=== PATIENT | female | born 1995 | race Caucasian/White ===

== ENCOUNTER → 2020-01-05 15:49 | Outpatient (CLI) | payer BC, SELFPAY ==
[2020-01-05 13:44] VITALS: BMI 42.1
[2020-01-09 17:06] LABS: HPV Reflexed? NOT INDICATED
== END ==
PROVIDERS: Referring Provider Obstetrics & Gynecology; Visit Provider Obstetrics & Gynecology
DX: Z12.4 Encounter for screening for malignant neoplasm of cervix (principal)
CPT/HCPCS: 88175; G0145

== ENCOUNTER → 2020-02-19 14:22 | Outpatient (CLI) | payer BC, SELFPAY ==
[2020-02-19 13:54] VITALS: BMI 41.7
[2020-02-19 15:22] LABS: Absolute Lymphocyte Count 2.13 X10^3/uL (0.83-4.51); Absolute Neutrophil Count 8.3 X10^3/uL (2.0-7.7); Basophil# 0.01 X10^3/uL; Basophil% 0.1 % (0-1); Eosinophil# 0.04 X10^3/uL; Eosinophils% 0.4 % (0-5); Hematocrit 37.5 % (37-47); Hemoglobin 12.5 g/dL (12.0-15.0); Lymphocyte # 2.13 X10^3/ul (4.0); Lymphocyte % 19.6 % (19-41); Mean Corp Hgb Conc 33.3 g/dL (32-36); Mean Corpuscular Hgb 31.1 pg (27.0-32.0); Mean Corpuscular Volume 93.3 fL (81-99); Mean Platelet Vol. 10.4 fl (6.2-12.0); Monocyte# 0.34 X10^3/uL; Monocyte% 3.1 % (0-10); NRBC Flagged by Analyzer 0 % (0-5); Neutrophil # 8.32 X10^3/uL (2.7-7.7); Neutrophil % 76.4 % (47-70); Platelet Count 275 K/mm3 (150-450); RBC Distribution Width CV 11.9 % (11.6-14.6); RBC Distribution Width SD 40.5 fl (35.1-43.9); Red Blood Count 4.02 M/mm3 (4.2-5.4); White Blood Count 10.9 K/mm3 (4.4-11.0)
[2020-02-19 16:13] LABS: Glucose Challenge Gest 1H 50g 145 mg/dL (70-140)
[2020-02-19 17:07] LABS: HIV - WCH Non-Reactive (Nonreactive); Hepatitis B Surface Antigen Non-Reactive (Nonreactive); Hepatitis C Antibody Non-Reactive (Nonreactive)
[2020-02-19 18:26] LABS: Amphetamine Urine VISTA NEGATIVE (<1000 ng/mL); Barbiturate Urine VISTA NEGATIVE (< 200 ng/mL); Benzodiazepine Urine VISTA NEGATIVE (< 200 ng/mL); Cocaine Urine VISTA NEGATIVE (< 300 ng/mL); Ecstacy Urine VISTA NEGATIVE (< 500 ng/mL); Methadone Urine VISTA NEGATIVE (< 300 ng/mL); PCP Urine VISTA NEGATIVE (< 25 ng/mL); THC Urine VISTA NEGATIVE (< 50 ng/mL); Vista UDS pH Range 5
[2020-02-24 03:07] LABS: Chlamydia By Nucleic Acid AMP Negative (Negative)
[2020-02-24 06:29] LABS: Gonococcus By Nucleic Acid AMP Negative (Negative)
[2020-02-26 01:20] LABS: Rapid Plasmin Reagin (RPR) NONREACTIVE (NONREACTIVE)
== END ==
PROVIDERS: Referring Provider Obstetrics & Gynecology; Visit Provider Obstetrics & Gynecology
DX: Z34.90 Encounter for supervision of normal pregnancy, unspecified, unspecified trimester (principal); Z12.4 Encounter for screening for malignant neoplasm of cervix
CPT/HCPCS: 36415; 80307; 82950; 85025; 86592; 86703; 86803; 86850; 86900; 86901; 87086; 87088; 87340; 87491; 87591

== ENCOUNTER → 2020-02-25 07:01 | Outpatient (CLI) | payer BC, SELFPAY ==
[2020-02-19 13:54] VITALS: BMI 41.7
[2020-02-25 08:17] LABS: Glucose GTT-Gestation. Fasting 86 mg/dL (<105)
[2020-02-25 09:45] LABS: Glucose GTT-Gestational 1 Hr 150 mg/dL (<190)
[2020-02-25 09:45] LABS: Glucose GTT-Gestational 2 Hr 108 mg/dL (<165)
[2020-02-25 11:44] LABS: Glucose GTT-Gestational 3 Hr 52 L (<145)
== END ==
PROVIDERS: PCP Nurse Practitioner Family; Referring Provider Obstetrics & Gynecology; Visit Provider Obstetrics & Gynecology
DX: O99.210 Obesity complicating pregnancy, unspecified trimester (principal); Z3A.00 Weeks of gestation of pregnancy not specified
CPT/HCPCS: 36415; 82951; 82952

== ENCOUNTER → 2020-04-13 08:15 | Outpatient (CLI) | payer BC, SELFPAY ==
[2020-03-18 14:15] VITALS: BMI 41.1
[2020-04-05 08:42] VITALS: BMI 41.5
--- NOTE | 2020-04-13 08:17 | CT_ITS ---
STUDY: CT BRAIN WITHOUT CONTRAST REASON FOR EXAM: Female, 24 years old. VISUAL DISTURANCE OF LEFT EYE, LEFT FACIAL PARATHESIA RADIATION DOSAGE (If Supplied By Facility): CTDIvol = ( 44.99 ) mGy, DLP = ( 829.85 ) mGycm TECHNIQUE: Transaxial CT imaging of the brain was performed without administration of intravenous contrast material. Individualized dose optimization techniques were used for this CT. COMPARISON: No relevant priors. FINDINGS: Normal soft tissue structures. Normal calvarium. Normal size ventricles and extra-axial spaces for the patient''s age. Normal white matter tracts of the cerebral hemispheres. Normal basal ganglia and thalami. Normal brainstem. Normal cerebellum. There is no intracranial hemorrhage. There are no findings of an acute ischemic infarction. Normal visualized paranasal sinuses. CT/Brain/Head without Contrast IMPRESSION: Normal unenhanced CT scan of the brain. Electronically Signed: Dutch Escobar MD at 8:47 EST Tel , Service support ,
== END ==
PROVIDERS: PCP Nurse Practitioner Family; Referring Provider Nurse Practitioner Family; Visit Provider Nurse Practitioner Family
DX: O26.899 Other specified pregnancy related conditions, unspecified trimester (principal); H53.9 Unspecified visual disturbance; R20.2 Paresthesia of skin; R20.0 Anesthesia of skin; R51.9 Headache, unspecified; Z3A.00 Weeks of gestation of pregnancy not specified
CPT/HCPCS: 70450

== ENCOUNTER → 2020-05-19 07:51 | Outpatient (CLI) | payer BC, SELFPAY ==
[2020-03-18 14:15] VITALS: BMI 41.1
[2020-05-06 13:52] VITALS: BMI 41.8
--- NOTE | 2020-05-19 07:53 | US_ITS ---
STUDY: SECOND AND THIRD TRIMESTER OBSTETRICAL ULTRASOUND REASON FOR EXAM: Female, 25 years old ANATOMY LMP: 01/01/2020. TECHNIQUE: Transabdominal TECHNICAL QUALITY: Adequate. PRIOR ULTRASOUND: None. FINDINGS: There is a single intrauterine fetus. The fetus is in a breech presentation. There is demonstrated cardiac activity with a heart rate of 147 bpm. There is a normal amniotic fluid volume. The largest amniotic fluid pocket measures 3.5 cm x 6.9 cm. The amniotic fluid index (HARSHA) is within normal limits. The placenta is posterior in location and is not low lying. There are Grade 1 placental changes. The cervix measures 4.7 cm in length. The adnexal regions are not visualized. BIOMETRY: BPD: 4.87 cm: 20 weeks, 5 days HC: 19.4 cm: 21 weeks, 4 days AC: 17.5 cm: 22 weeks, 2 days FL: 3.59 cm: 21 weeks, 2 days CI: 72.1% FL/BPD: 73.8% FL/HC: FL/AC: 20.6% HC/AC: 1.11 age by current US: 21 weeks, 2 days. HANY by current US: 09/27/2020. Estimated weight: 454 grams, +/- 68 grams, 41.7% %. Age by LMP: 21 weeks, 6 days. HANY by LMP: 09/23/2020. ANATOMY: Gender: Female Cranium: Normal lateral ventricles. Normal choroid plexus. Normal cerebellum. Normal cisterna magna. Normal face, nose and lips. Chest: Normal 4-chamber heart. Abdomen/Pelvis: Normal diaphragm. Normal stomach. Normal abdominal wall. Normal cord insertion. Normal 3 vessel cord. Normal kidneys. Normal bladder. Spine: Normal cervical spine. Normal thoracic spine. Normal lumbar spine. Normal sacrum. Extremities: Normal bilateral upper extremities. Normal bilateral lower extremities. US/OB Anatomy Scan IMPRESSION: Single live intrauterine gestation with a mean gestational age of 21 weeks and 2 days. Electronically Signed: Jin Miranda MD at 10:50 EST , Service support ,
== END ==
PROVIDERS: PCP Nurse Practitioner Family; Referring Provider Obstetrics & Gynecology; Visit Provider Obstetrics & Gynecology
DX: O09.90 Supervision of high risk pregnancy, unspecified, unspecified trimester (principal); Z3A.21 21 weeks gestation of pregnancy
CPT/HCPCS: 76805

== ENCOUNTER → 2020-06-21 06:52 | Outpatient (CLI) | payer BC, SELFPAY ==
[2020-05-31 14:22] VITALS: BMI 41.8
[2020-06-21 07:07] LABS: Absolute Lymphocyte Count 2.07 X10^3/uL (0.83-4.51); Absolute Neutrophil Count 8.4 X10^3/uL (2.0-7.7); Basophil# 0.03 X10^3/uL; Basophil% 0.3 % (0-1); Eosinophil# 0.06 X10^3/uL; Eosinophils% 0.5 % (0-5); Hematocrit 38.7 % (37-47); Hemoglobin 12.6 g/dL (12.0-15.0); Lymphocyte # 2.07 X10^3/ul (4.0); Lymphocyte % 18.3 % (19-41); Mean Corp Hgb Conc 32.6 g/dL (32-36); Mean Corpuscular Hgb 31.1 pg (27.0-32.0); Mean Corpuscular Volume 95.6 fL (81-99); Mean Platelet Vol. 9.7 fl (6.2-12.0); Monocyte# 0.75 X10^3/uL; Monocyte% 6.6 % (0-10); NRBC Flagged by Analyzer 0 % (0-5); Neutrophil # 8.36 X10^3/uL (2.7-7.7); Neutrophil % 73.9 % (47-70); Platelet Count 279 K/mm3 (150-450); RBC Distribution Width CV 13.2 % (11.6-14.6); RBC Distribution Width SD 46.4 fl (35.1-43.9); Red Blood Count 4.05 M/mm3 (4.2-5.4); White Blood Count 11.3 K/mm3 (4.4-11.0)
[2020-06-21 07:22] LABS: Glucose GTT-Gestation. Fasting 86 mg/dL (<105)
[2020-06-21 08:19] LABS: Rubella IgG Reactive (Nonreactive)
[2020-06-21 08:34] LABS: Glucose GTT-Gestational 1 Hr 173 mg/dL (<190)
[2020-06-21 09:39] LABS: Glucose GTT-Gestational 2 Hr 121 mg/dL (<165)
[2020-06-21 10:49] LABS: Glucose GTT-Gestational 3 Hr 51 L (<145)
== END ==
PROVIDERS: Obstetrics & Gynecology; PCP Nurse Practitioner Family; Referring Provider Obstetrics & Gynecology; Visit Provider Obstetrics & Gynecology
DX: O09.90 Supervision of high risk pregnancy, unspecified, unspecified trimester (principal); Z3A.00 Weeks of gestation of pregnancy not specified; O99.810 Abnormal glucose complicating pregnancy
CPT/HCPCS: 36415; 82951; 82952; 85025; 86762

== ENCOUNTER → 2020-08-30 16:38 | Outpatient (CLI) | payer BC, SELFPAY ==
[2020-08-30 09:43] VITALS: BMI 38.0
== END ==
PROVIDERS: Referring Provider Obstetrics & Gynecology; Visit Provider Obstetrics & Gynecology
DX: O09.93 Supervision of high risk pregnancy, unspecified, third trimester (principal); Z3A.00 Weeks of gestation of pregnancy not specified
CPT/HCPCS: 87081

== ENCOUNTER → 2020-09-20 14:07 | Outpatient (CLI) | payer BC, SELFPAY ==
[2020-09-06 12:56] VITALS: BMI 38.0
[2020-09-20 10:16] VITALS: BMI 39.4
== END ==
PROVIDERS: PCP Nurse Practitioner Family; Visit Provider Obstetrics & Gynecology
DX: O09.90 Supervision of high risk pregnancy, unspecified, unspecified trimester (principal); Z3A.00 Weeks of gestation of pregnancy not specified
CPT/HCPCS: 87635; C9803; U0005; U0003

== ENCOUNTER 2020-09-27 02:28 | Outpatient (CLI) | payer BC, SELFPAY ==
[2020-09-20 10:16] VITALS: BMI 39.4
[2020-09-27 02:40] VITALS: TEMP 36.2
[2020-09-27 02:43] VITALS: BP 132/82; PULSE 83; O2SAT 97
[2020-09-27 02:51] VITALS: BMI 39.6
[2020-09-27 06:37] VITALS: O2SAT 98
[2020-09-27 06:38] VITALS: BP 118/69; PULSE 80
[2020-09-27 07:13] VITALS: BP 120/75; PULSE 80; TEMP 36.8; O2SAT 98
[2020-09-27 07:14] VITALS: TEMP 36.8
--- NOTE | 2020-09-27 08:30 | OB.TRI.PN_ITS ---
Progress Notes Date of Service: 09/27/20 Progress Note: Patient presents for triage evaluation secondary to false labor FHT: 130 Moderate variability reactive no decelerations category I tracing [place]: q 5-6 Contractions Assessment and plan: no cervical change, false labor Reactive NST, reassuring maternal and status patient discharged to home to follow-up for IOL 41 weeks. See problem list details for additional plan information.
== END 2020-09-27 07:50 | disposition home or self-care (01) ==
LOC: WPOUT 02:39 → WP 02:40
PROVIDERS: PCP Nurse Practitioner Family; Referring Provider Obstetrics & Gynecology; Visit Provider Obstetrics & Gynecology
DX: O47.1 False labor at or after 37 completed weeks of gestation (principal); Z3A.00 Weeks of gestation of pregnancy not specified
CPT/HCPCS: 59025; 59050; 99218; G0378

== ENCOUNTER 2020-09-30 06:53 | Inpatient (IN) | payer BC, SELFPAY ==
[2020-09-30] VITALS (33 sets, daily range): BP systolic 96–156; BP diastolic 60–113; PULSE 79–112; TEMP 36.3–36.7; O2SAT 96–98; BMI 39.4
--- NOTE | 2020-09-30 07:22 | HP.PCM.OB_ITS ---
HPI - General General Date of Admission: 09/30/20 HPI Narrative SANCHEZ ANN, is a 25 F who presents at 41 weeks for IOL. she denies any vb lof admits good fm and irregular ctx Maternal Data Information HANY Calculator Estimated Delivery Date Method Current WG Current Estimate 09/23/20 LMP (Certain) 41w 0d Other Estimates 09/24/20 Ultrasound #1 40w 6d PFSH PFSH Medical History (Updated 09/30/20 @ 07:[address] Emelina aRngel MD) Seasonal allergies Home Medications multivitamin no.47-iron fum 27 mg-folate no.1 1 mg-dha 300 mg capsule cap PO 02/11/20 [History Last Taken Unknown] Allergy/AdvReac Type Severity Reaction Status Date / Time No Known Allergies Allergy Verified 09/27/20 02:52 Family History Grandfather Bladder cancer Grandmother Congestive heart failure Surgical History S/P tonsillectomy Social History Smoking Status: Never smoker alcohol intake: current details: occasionally substance use type: does not use caffeine: Yes what type of physical activity do you participate in: walking and weight training frequency: 1-2 times per week seatbelt use: always do you feel safe at home: Yes additional social history: [employer] Patient works at [employer] History 1 Elective abortions Hx Para Spontaneous abortions Hx # Term Pregnancies Ectopic pregnancies Hx # Pregnancies Multiple births # of living children Visit Details Expected Delivery Route/Plan Labor Preferences- CB/BF classes: planning online labor support person: Serg labor intervention preferences: IA, desires hydrotherapy, delayed cord clamping until stops pulsating, declines hep B vaccine, plan on vitamin K pain management options preferred: desires natural labor cut cord/dad catch: cord only : yes PP control planned: NFP discussed possible routes of delivery and associated risks: discussed possible delivery modalities and possible indications for each including R/B/A of , VAVD, and CS. questions answered. special requests: dad to announce Plans flu vaccine: declined tdap vaccine: given rhogam: na LARC form signed: declined movement and labor precautions reviewed. Problem list reviewed and updated with the most current plan of care details and appropriate orders placed. Relevant counseling for the gestational age provided. Continue routine care and follow up unless otherwise noted in visit notes/problem list details OB Flowsheet Initial Weight: 221 lb Date -?-?-?-?-?-?-?-?-?-?-?-?- EGA Weight BP Urine Prot -?-?-?-?-?-?-?-?-?-?-?-?- Glucose FHR FuHt Pres Dilation -?-?-?-?-?-?-?-?-?-?-?-?- Effaced St Visit Note 02/19/20 -?-?-?-?-?-?-?-?-?-?-?-?- 9w 0d 221 lb (+0 oz) 120/84 -?-?-?-?-?-?-?-?-?-?-?-?- 175 -?-?-?-?-?-?-?-?-?-?-?-?- SM- CRL cons wit h LMP SM- CRL2 cm cons with LMP 03/18/20 -?-?-?-?-?-?-?-?-?-?-?-?- 13w 0d 217 lb 6 oz (-3 lb 10 oz) 130/86 Negative -?-?-?-?-?-?-?-?-?-?-?-?- Negative 160 -?-?-?-?-?-?-?-?-?-?-?-?- GP - no cramping or bleeding. Anatomy scan ordered. 04/05/20 -?-?-?-?-?-?-?-?-?-?-?-?- 15w 4d 220 lb (-16 oz) 130/80 Negative -?-?-?-?-?-?-?-?-?-?-?-?- Negative 155 -?-?-?-?-?-?-?-?-?-?-?-?- SM- had complex migraine symptoms, seen by pcp and getting CT of the head. 05/06/20 -?-?-?-?-?-?-?-?-?-?-?-?- 20w 0d 221 lb 4 oz (+4 oz) 118/78 Negative -?-?-?-?-?-?-?-?-?-?-?-?- Negative 150 -?-?-?-?-?-?-?-?-?-?-?-?- GP - no ctx, LOF , VB, DFM. Anatomy scan first week in May. 05/31/20 -?-?-?-?-?-?-?-?-?-?-?-?- 23w 4d 221 lb 6 oz (+6 oz) 118/82 Negative -?-?-?-?-?-?-?-?-?-?-?-?- Negative 145 23 -?-?-?-?-?-?-?-?-?-?-?-?- GP - no LOF, VB, DFM, ctx. Plan repeat 3h GCT for glucose test. 06/28/20 -?-?-?-?-?-?-?-?-?-?-?-?- 27w 4d 223 lb (+2 lb) 132/80 Negative -?-?-?-?-?-?-?-?-?-?-?-?- Negative 160 27 -?-?-?-?-?-?-?-?-?-?-?-?- GP - no LOF, VB, DFM, ctx. 3h GCT nl. Currently remodeling their bedroom and baby's room. 07/12/20 -?-?-?-?-?-?-?-?-?-?-?-?- 29w 4d 221 lb 8 oz (+8 oz) 120/72 Negative -?-?-?-?-?-?-?-?-?-?-?-?- 500 g/dL 135 29 -?-?-?-?-?-?-?-?-?-?-?-?- GP - no LOF, VB, DFM, ctx. Denies complaints. Doing online childbirth classes. 07/28/20 -?-?-?-?-?-?-?-?-?-?-?-?- 31w 6d 222 lb (+16 oz) 104/72 Negative -?-?-?-?-?-?-?-?-?-?-?-?- Negative 170 150 32 -?-?-?-?-?-?-?-?-?-?-?-?- GP - no LOF, VB, DFM, ctx. Still doing online CB classes. Baby initially tachycardic - NST done. 08/09/20 -?-?-?-?-?-?-?-?-?-?-?-?- 33w 4d 222 lb (+16 oz) 98/80 Negative -?-?-?-?-?-?-?-?-?-?-?-?- Negative 150 34 -?-?-?-?-?-?-?-?-?-?-?-?- SM- no vb lof go od fm no regular ctx 08/23/20 -?-?-?-?-?-?-?-?-?-?-?-?- 35w 4d 225 lb (+4 lb) 94/80 Negative -?-?-?-?-?-?-?-?-?-?-?-?- Negative 140 36 Cephalic -?-?-?-?-?-?-?-?-?-?-?-?- SM- no vb lof go od fm no regular ctx 08/30/20 -?-?-?-?-?-?-?-?-?-?-?-?- 36w 4d 227 lb 8 oz (+6 lb 8 oz) 128/88 Negative -?-?-?-?-?-?-?-?-?-?-?-?- Negative 144 36 Cephalic 1 -?-?-?-?-?-?-?-?-?-?-?-?- 50 -3 GP - no LO F, VB, DFM, ctx. Discussed labor preferences and routes of delvery. GBS today. 09/06/20 -?-?-?-?-?-?-?-?-?-?-?-?- 37w 4d 230 lb (+9 lb) 120/86 Negative -?-?-?-?-?-?-?-?-?--?-?-?- Negative 145 37 Cephalic 1 -?-?-?-?-?-?-?-?-?-?-?-?- SM- no vb lof go od fm no regular ctx 09/15/20 -?-?-?-?-?-?-?-?-?-?-?-?- 38w 6d 230 lb 2 oz (+9 lb 2 oz) 120/88 Negative -?-?-?-?-?-?-?-?-?-?-?-?- Negative 140 39 Cephalic 2 -?-?-?-?-?-?-?-?-?-?-?-?- 60 -2 GP - no LO F, VB, DFM, ctx. Membranes swept. 09/20/20 -?-?-?-?-?-?-?-?-?-?-?-?- 39w 4d 231 lb (+10 lb) 110/82 Negative -?-?-?-?-?-?-?--?-?-?-?-?- 250 g/dL 150 39 Cephalic 2 -?-?-?-?-?-?-?-?-?-?-?-?- 60 -2 GP - no LO F, VB, DFM, ctx. Had cramping after membrane sweeping. Discussed IOL at 41w if no labor. 09/27/20 -?-?-?-?-?-?-?-?-?-?-?-?- 40w 4d 231 lb 6.4 oz (+10 lb 6.4 oz) 132/82 118/69 120/75 -?-?-?-?-?-?-?-?-?-?-?-?- -?-?-?-?-?-?-?-?-?-?-?-?- 09/30/20 -?-?-?-?-?-?-?-?-?-?-?-?- 41w 0d -?-?-?-?-?-?-?-?-?-?-?-?- -?-?-?-?-?-?-?--?-?-?-?-?- NST FHR Rate Baby A Baseline: 130 Variability:: Moderate Accelerations:: 15 x 15 Decelerations:: None NST Reactive:: Yes FHR Category:: Category I Uterine Activity:: irregular ROS Constitutional Constitutional: Reports systems reviewed and no addt'l complaints, except as documented Eyes Eyes: Denies change in vision ENT HEENT: Reports systems reviewed and no addt'l complaints, except as documented; Denies headache(s) Cardiovascular Cardiovascular: Reports systems reviewed and no addt'l complaints, except as documented; Denies chest pain or dyspnea Respiratory/Chest Respiratory/Chest: Reports systems reviewed and no addt'l complaints, except as documented Gastrointestinal Gastrointestinal: Reports systems reviewed and no addt'l complaints, except as documented; Denies abdominal pain Genitourinary Genitourinary: Reports systems reviewed and no addt'l complaints, except as documented, contractions Details: present (irregular) and movement Details: present; Denies dysuria or genital lesions Musculoskeletal Musculoskeletal: Reports systems reviewed and no addt'l complaints, except as documented Neurologic Neurologic: Reports systems reviewed and no addt'l complaints, except as documented Endocrine Endocrinology: Reports systems reviewed and no addt'l complaints, except as documented Vital Signs Vital Signs Vital Signs: Weight Body Mass Index (BMI) 39.6 Physical Exam Const alert, oriented x3, no apparent distress and healthy appearing HEENT normocephalic and moist oral mucous membranes Head and Scalp: atraumatic Neck full ROM, no lymphadenopathy, supple and thyroid normal General: trachea midline Lymph Lymphatic: no lymphadenopathy noted Chest inspection of chest normal Resp normal respiratory effort Cardio regular rate GI normal to inspection, nondistended, normoactive bowel sounds, soft to palpation and non-tender Inspection: gravid external exam normal Manual OB Exam: estimated gestational size appropriate, presentation cephalic, dilated, effaced and station Extremity normal to inspection General Extremity: Negative for edema Skin no rashes or lesions noted Neuro no focal motor deficits and deep tendon reflexes 2+ bilaterally Motor Exam: strength 5/5 throughout and clonus absent Psych mental status grossly normal Labs Labs Labs: Blood Type O POSITIVE Antibody Screen NEGATIVE Hct 38.7 % (37-47) Hgb 12.6 g/dL (12.0-15.0) Obstetrics US Rubella IgG Antibody Reactive (Nonreactive) Hep Bs Antigen Non-Reactive (Nonreactive) Neisseria gonorrhoeae DNA (ITZEL) Negative (Negative) HIV 1&2 Antibody Non-Reactive (Nonreactive) Glucose 1 Hr 50 gm 145 mg/dL (70-140) H Assessment & Plan (1) : QUALIFIERS: Weeks of gestation: 39 weeks Qualified Code(s): Z3A.39 - 39 weeks gestation of COMMENT: declined genetic, carrier and NTD screening. NL anatomy. GBS neg (2) Supervision of high-risk : QUALIFIERS: Trimester: third trimester Qualified Code(s): O09.93 - Supervision of high risk , unspecified, third trimester COMMENT: PRR HANY: 09/23/20 [place]! Spouse: Serg (3) Obesity affecting : QUALIFIERS: Trimester: third trimester Qualified Code(s): O99.213 - Obesity complicating , third trimester COMMENT: nl 1 tm glucola, encouraged healthy weight gain. (4) Abnormal glucose affecting : COMMENT: passed 3 hr. GTT (5) 32 weeks gestation of : COMMENT: COVID test ordered on 08/04/20 (scheduled for 09/20/20 at 1400) neg. covid PLAN: Patient presents IOL, plan management for with pitocin/AROM. Pain management: prefers minimal intervention. GBS negative. Management of any complications: none I have reviewed the [facility] and made any clinically relevant updates. (6) Encounter for induction of labor:
[2020-09-30] MEDS: Lactated Ringers 1,000 ML 50 ML IV (09:00)
[2020-09-30 09:22] LABS: Absolute Lymphocyte Count 1.97 X10^3/uL (0.83-4.51); Absolute Neutrophil Count 7.8 X10^3/uL (2.0-7.7); Basophil# 0.01 X10^3/uL; Basophil% 0.1 % (0-1); Hematocrit 38.7 % (37-47); Hemoglobin 12.6 g/dL (12.0-15.0); Lymphocyte # 1.97 X10^3/ul (0.83-4.51); Lymphocyte % 18.8 % (19-41); Mean Corp Hgb Conc 32.6 g/dL (32-36); Mean Corpuscular Hgb 30.1 pg (27.0-32.0); Mean Corpuscular Volume 92.6 fL (81-99); Monocyte% 6.7 % (0-10); NRBC Flagged by Analyzer 0 % (0-5); Neutrophil # 7.77 X10^3/uL (2.7-7.7); Neutrophil % 74.1 % (47-70); Platelet Count 259 K/mm3 (150-450); RBC Distribution Width CV 14.7 % (11.6-14.6); RBC Distribution Width SD 50.3 fl (35.1-43.9); Red Blood Count 4.18 M/mm3 (4.2-5.4); White Blood Count 10.5 K/mm3 (4.4-11.0)
[2020-09-30] MEDS: Oxytocin 30 units/NS 500 ml 30 UNITS/500 ML IV.SOLN IV (11:00)
[2020-09-30] MEDS: Lactated Ringers 500 ML 999 ML IV (17:32)
[2020-09-30] MEDS: Oxytocin 30 units/NS 500 ml 30 UNITS/500 ML IV.SOLN 334 UNITS IV (18:30)
--- NOTE | 2020-09-30 19:06 | OP.PCM_ITS ---
Assessment & Plan (1) : QUALIFIERS: Weeks of gestation: 39 weeks Qualified Code(s): Z3A.39 - 39 weeks gestation of COMMENT: declined genetic, carrier and NTD screening. NL anatomy. GBS neg (2) Supervision of high-risk : QUALIFIERS: Trimester: third trimester Qualified Code(s): O09.93 - Supervision of high risk , unspecified, third trimester COMMENT: PRR HANY: 09/23/20 [place]! Spouse: Serg (3) Obesity affecting : QUALIFIERS: Trimester: third trimester Qualified Code(s): O99.213 - Obesity complicating , third trimester COMMENT: nl 1 tm glucola, encouraged healthy weight gain. (4) Abnormal glucose affecting : COMMENT: passed 3 hr. GTT (5) 32 weeks gestation of : COMMENT: COVID test ordered on 08/04/20 (scheduled for 09/20/20 at 1400) neg. covid (6) Encounter for induction of labor: Maternal Data Information HANY Calculator Estimated Delivery Date Method Current WG Current Estimate 09/23/20 LMP (Certain) 41w 0d Other Estimates 09/24/20 Ultrasound #1 40w 6d Vaginal Delivery Maternal Presentation Maternal Presentation: Medically Indicated Induction Maternal Presentation: 41 week Type of Induction: Pitocin Operative Information Date of Procedure: 09/30/20 Pre-Operative Diagnosis: IOL postdates Post-Operative Diagnosis: same Surgery / Procedure Performed: Spontaneous Vaginal Delivery Type of Anesthesia: None and Local with 1% Lidocaine Special Medications: none Estimated Blood Loss: 200 Fluids Replaced: crystalloid Findings Description of Procedure: Patient began pushing and delivered the head in the KEVIN presentation. The head was delivered atraumatically. The anterior and posterior shoulders delivered without complication followed by the rest of the infant and the was placed on the maternal abdomen. Delayed cord clamping was employed for approximately 60 seconds. Cord was clamped and cut and gentle traction was applied to the cord and the placenta delivered spontaneously immediately following it was noted to be intact with three-vessel cord. The perineum and vagina were inspected and noted to have a first-degree perineal laceration that was repaired in the usual fashion after injecting with 1% lidoc senait with 3-0 Vicryl Rapide and a left vaginal first-degree laceration repaired in the usual fashion with 3-0 Vicryl repeat.. EBL was 200 cc. Patient and tolerated delivery well. Presentation: ANIL Amniotic Membrane Rupture Type: Artificial Amniotic Fluid Description: Clear Placental Delivery Description: Spontaneous Placenta Disposition: [facility] Cord Vessel Description: 3 Vessels Cord Entanglement: None A Gender: Female Delayed Cord Clamping: Yes Post Vaginal Delivery Medications Given After Delivery: IV Pitocin Episiotomy Description: None Laceration: None Complication Complications: None Procedures Urinary/Genital [id number]: [id number] Vaginal Delivery [facility]
--- NOTE | 2020-09-30 19:08 | PCM.DC ---
Discharge Instructions Diet Discharge Diet: No restrictions Activity Discharge Activity: Return to Normal Activity, May Not Drive (while taking narcotic pain medications.) and May Shower May resume sexual activity in: 4-6 weeks Dressing / Incision Call your doctor if your incision/area has: Continuous Slow Oozing, Sudden Increased Bleeding, Increased Pain/ Swelling, Increased Redness and Foul Smelling Discharge Follow Up Care Please Follow Up With: Emelina Rangel MD When: Call [phone] to make an appointment with your doctor in 6 weeks. If you had elevated blood pressure or 4th degree laceration, you will need to be seen in 2 weeks. Test Results: Test results from this visit will be discussed in further detail at your follow-up appointment, if applicable. Discharge Plan Admission Admit Date/Time: 09/30/20 06:53 Attending Provider: Emelina Rangel Primary Care Provider: Valeria Fleming HEAD INSPECTOR Discharge Orders/Prescriptions Prescriptions: No Action PNV-DHA 27 mg iron-1 mg -300 mg capsule 1 cap PO DAILY RF: 0
[2020-10-01] VITALS: BP 118/73; PULSE 110; RESP 18; TEMP 36.7; O2SAT 95
[2020-10-01 04:32] VITALS: BP 121/57; PULSE 102; RESP 18; TEMP 36.9
[2020-10-01 08:55] VITALS: BP 140/68; PULSE 109; RESP 16; TEMP 35.9; O2SAT 97
--- NOTE | 2020-10-01 10:57 | PN.OBGYN_ITS ---
Subjective Subjective Patient doing well without complaints. Tolerating PO. Ambulating and voiding without difficulty. feeding well. Denies chest pain, shortness of breath, calf pain/swelling, fevers, chills, lightheadedness. Objective Data Objective Data Vital Signs: Vital Signs Temp Pulse Resp BP Pulse Ox 96.7 F L 109 H 16 140/68 H 97 10/01/20 08:55 10/01/20 08:55 10/01/20 08:55 10/01/20 08:55 10/01/20 08:55 Oxygen Delivery Method Room Air Weight: 229 lb 15.074 oz Body Mass Index (BMI) 39.4 Intake & Output: Intake and Output for Last 24 Hours 09/29/20 09/30/20 10/01/20 23:59 23:59 23:59 Intake Total 1751.21 / 1751.21 Output Total 200 / 200 Balance 1551.21 / 1551.21 Lab / Micro Data Result Diagrams: 09/30/20 09:00 ROS Constitutional Constitutional: Reports systems reviewed and no addt'l complaints, except as do cumented Cardiovascular Cardiovascular: Reports systems reviewed and no addt'l complaints, except as documented Respiratory/Chest Respiratory/Chest: Reports systems reviewed and no addt'l complaints, except as documented Gastrointestinal Gastrointestinal: Reports systems reviewed and no addt'l complaints, except as documented Physical Exam Const alert, oriented x3 and no apparent distress HEENT Head and Scalp: atraumatic Resp normal respiratory effort GI soft to palpation and non-tender Bimanual Exam - Vag & Uterus: uterus non-tender Uterus Palpation: uterus fundus firm (below Umbilicus) Assessment & Plan (1) Vaginal delivery: COMMENT: 41 IOL postdates SM salma girl PLAN: s/p PPD # 1 1. routine post delivery care 2. breast feeding- support given 3. rh positive 4. rubella immune
[2020-10-01 12:30] VITALS: BP 109/73; PULSE 95; RESP 16; TEMP 36.1; O2SAT 97
[2020-10-01 15:30] VITALS: BP 122/67; PULSE 89; RESP 18; TEMP 36.4; O2SAT 96
[2020-10-01 20:30] VITALS: BP 125/80; PULSE 101; RESP 16; TEMP 36.1; O2SAT 97
== END 2020-10-01 21:00 | disposition home or self-care (01) | DRG 807 ==
PROVIDERS: Admitting Provider Obstetrics & Gynecology; PCP Nurse Practitioner Family; Referring Provider Obstetrics & Gynecology; Visit Provider Obstetrics & Gynecology
DX: O48.0 Post-term pregnancy (principal); Z37.0 Single live birth; O70.0 First degree perineal laceration during delivery; Z3A.41 41 weeks gestation of pregnancy; Z28.21 Immunization not carried out because of patient refusal; Z80.52 Family history of malignant neoplasm of bladder; Z82.49 Family history of ischemic heart disease and other diseases of the circulatory system; O99.214 Obesity complicating childbirth; E66.9 Obesity, unspecified
CPT/HCPCS: 59025; 59050; 85025; 86850; 86900; 86901; 99218; J7120; G0378

== ENCOUNTER 2020-12-30 10:25 | Outpatient (CLI) | payer BC, SELFPAY | END 2020-12-30 11:00 | disposition home or self-care (01) | LOC: WPOUT 10:34 → WP 10:34 | PROVIDERS: PCP Nurse Practitioner Family; Referring Provider Nurse Practitioner Women's Health; Visit Provider Nurse Practitioner Women's Health | DX: Z71.89 Other specified counseling (principal) | CPT/HCPCS: 96158 ==

== ENCOUNTER → 2021-01-04 07:55 | Outpatient (CLI) | payer BC, SELFPAY ==
--- NOTE | 2021-01-04 07:58 | US_ITS ---
STUDY: ULTRASOUND BREAST - RIGHT REASON FOR EXAM: Female, 25 years old. Pain in the right breast. TECHNIQUE: Axial and longitudinal images of the RIGHT breast were performed with a high resolution ultrasound transducer. # OF IMAGES: 16 COMPARISON: None. FINDINGS: RIGHT Breast: The lower outer quadrant of the right breast was examined by ultrasound. No sonographic abnormality is seen. US/Breast Limited Unilateral IMPRESSION: No sonographic abnormality is seen. ASSESSMENT CATEGORY: BIRADS Category 1: Negative. A letter regarding these results will be sent to the patient by the facility within 30 days. Electronically Signed: Jin Miranda MD at 8:33 EDT , Service support ,
== END ==
PROVIDERS: PCP Nurse Practitioner Family; Referring Provider Nurse Practitioner Women's Health; Visit Provider Nurse Practitioner Women's Health
DX: N64.4 Mastodynia (principal)
CPT/HCPCS: 76642

== ENCOUNTER → 2021-01-23 15:15 | Outpatient (CLI) | payer BC, SELFPAY | PROVIDERS: PCP Nurse Practitioner Family; Referring Provider Obstetrics & Gynecology; Visit Provider Obstetrics & Gynecology | DX: Z39.1 Encounter for care and examination of lactating mother (principal) | CPT/HCPCS: 96158; 96159 ==

== ENCOUNTER → 2021-11-18 | Outpatient (CLI) | payer BC, SELFPAY ==
--- NOTE | 2021-11-18 09:35 | US_ITS ---
STUDY: ULTRASOUND BREAST - LEFT REASON FOR EXAM: Female, 26 years old. Left breast mass. TECHNIQUE: Axial and longitudinal images of the LEFT breast were performed with a high resolution ultrasound transducer. # OF IMAGES: 16 COMPARISON: Diagnostic mammogram performed today. FINDINGS: LEFT Breast: Targeted ultrasound of the left breast at the 12 o''clock position in the area of clinical concern shows normal fibroglandular tissue. Any decision about this finding should be made on clinical grounds. US/Breast Limited Unilateral IMPRESSION: No abnormality on the targeted left breast ultrasound or the bilateral diagnostic mammogram. ASSESSMENT CATEGORY: BIRADS Category 2: Benign. A letter regarding these results will be sent to the patient by the facility within 30 days. Electronically Signed: Hermilo Haynes MD at 10:51 EDT ,
--- NOTE | 2021-11-18 09:35 | BI_ITS ---
MAMMOGRAPHY - BILATERAL DIAGNOSTIC REASON FOR EXAM: Female, 26 years old. Left breast fibroglandular density at 12 o''clock. PERTINENT HISTORY: Non-contributory. TECHNIQUE: Digital examination. Mediolateral oblique (MLO) and craniocaudad (CC) views of both breasts were obtained. CAD: COMPARISON: Right breast ultrasound dated 01/04/2021 when the patient was breast-feeding. No mammographic comparison images. FINDINGS: Breast Composition: The breasts are almost entirely fatty. There are no dominant masses or suspicious calcifications. Targeted right breast ultrasound showed no abnormality (see detailed ultrasound report). No other significant abnormalities are identified. BI/DIAG MAMM W/CAD, BILAT IMPRESSION: No abnormality in the area of clinical question or in the bilateral mammogram. Ultrasound was also negative. Any decision about the mass should be made on clinical grounds. ASSESSMENT CATEGORY: BIRADS Category 1: Negative. A letter regarding these results will be sent to the patient by the facility within 30 days. FOLLOW UP RECOMMENDATION: Begin screening mammograms at 40 years of age. (N) Approximately 10% of breast cancers are not detected by mammography. A normal mammogram should not delay biopsy of a clinically suspicious abnormality. Electronically Signed: Hermilo Haynes MD at 10:49 EDT ,
== END | disposition home or self-care (01) ==
PROVIDERS: PCP Nurse Practitioner Family; Visit Provider Obstetrics & Gynecology
DX: N63.20 Unspecified lump in the left breast, unspecified quadrant (principal)
CPT/HCPCS: 76642; 77062; 77066; G0279

== ENCOUNTER 2024-07-03 09:18 | Inpatient (IN) | payer BC, SELFPAY ==
[2024-07-03] VITALS (15 sets, daily range): BP systolic 92–122; BP diastolic 51–76; PULSE 72–113; RESP 14–18; TEMP 36.3–37.4; O2SAT 80–97; BMI 38.9
[2024-07-03 03:34] LABS: Mucous, Urine 0 SEEN /hpf (<or=2+)
[2024-07-03] MEDS: LACTATED RINGERS 500 ML 999 ML IV ×2 (03:40→04:11)
[2024-07-03 03:47] LABS: Color, Urine Yellow (Yellow); Glucose, Dipstick 50 mg/dl (Normal); Leukocyte Esterase-Dipstick 500 /ul (Negative); Nitrite-Dipstick Negative (Negative); Occult Blood-Urine 250 /ul (Negative); Protein-Dipstick 100 mg/dl (Negative); Urine Bilirubin Dipstick Negative (Negative); Urine Clarity Cloudy (Clear); Urine Urobilinogen 1 mg/dl (Normal)
[2024-07-03 03:49] LABS: Ketone-Dipstick 150 mg/dl (Negative)
[2024-07-03 03:55] LABS: Bacteria 3+ /hpf (None Seen); Squamous Epithelial Cells - UA 5-10 SEEN /hpf (5-10)
[2024-07-03 03:56] LABS: Red Blood Cells-Urine 0-5 SEEN /hpf (0-5); White Blood Cells 25-50 SEEN /hpf (0-5)
[2024-07-03] MEDS: Cefazolin 1 GM/50 ML BAG IV ×4 (04:01→22:47)
[2024-07-03 04:06] LABS: Absolute Neutrophil Count 16.2 X10^3/uL (2.0-7.7); Basophil# 0.05 X10^3/uL; Basophil% 0.3 % (0-1); Hemoglobin 11.8 g/dL (12.0-15.0); Lymphocyte % 6.6 % (19-41); Mean Corp Hgb Conc 33.7 g/dL (32-36); Mean Corpuscular Hgb 30.4 pg (27.0-32.0); Mean Corpuscular Volume 90.2 fL (81-99); Mean Platelet Vol. 9.2 fl (6.2-12.0); Monocyte# 0.66 X10^3/uL; Monocyte% 3.6 % (0-10); NRBC Flagged by Analyzer 0 % (0-5); Neutrophil # 16.18 X10^3/uL (2.7-7.7); Neutrophil % 88.6 % (47-70); Platelet Count 266 K/mm3 (150-450); RBC Distribution Width CV 13.6 % (11.6-14.6); RBC Distribution Width SD 44.3 fl (35.1-43.9); Red Blood Count 3.88 M/mm3 (4.2-5.4); White Blood Count 18.3 K/mm3 (4.4-11.0)
[2024-07-03] MEDS: NIFEdipine 10 MG Capsule PO ×3 (04:28→19:42)
[2024-07-03] MEDS: Betamethasone/Betamethasone 30 MG/5 ML Vial 12 MG IM (04:29)
[2024-07-03 04:32] LABS: Hepatitis C Antibody Nonreactive (Nonreactive)
[2024-07-03] MEDS: Lactated Ringers 1,000 ML 150 ML IV ×3 (04:42→17:55)
[2024-07-03 05:08] LABS: HIV Nonreactive (Nonreactive)
[2024-07-03 05:24] LABS: Hepatitis B Surface Antigen Nonreactive (Nonreactive); Rubella IgG REAC (Nonreactive); Syphilis Antibodies Nonreactive (Nonreactive)
[2024-07-03 05:30] LABS: ALB/GLOB Ratio 1.3 RATIO (0.9-2.4); AST(SGOT) 23 U/L (<=31); Alanine Aminotransfer ALT/SGPT 17 U/L (<=34); Albumin, Serum 3.6 g/dL (3.5-5.0); Alkaline Phosphatase 135 U/L (35-104); Anion Gap 15 (5-15); BUN 9 mg/dL (4-19); BUN/Creat Ratio 16.9 RATIO (10-20); Calcium,Total 8.5 mg/dL (7.6-11.0); Carbon Dioxide 18.5 mmol/L (21.0-32.0); Chloride 96 mmol/L (98-108); Creatinine, Serum 0.51 mg/dL (0.70-1.20); EST Glomerular Filtration Rate 130 (>60); Estimated Creatinine Clearance 191.77 ml/min (50-250); Globulin 2.7 g/dL (2.2-4.2); Glucose 130 mg/dL (70-99); Potassium 3.8 mmol/L (3.3-5.1); Protein, Total 6.3 g/dL (5.9-8.4); Sodium Level 129 mmol/L (133-145); Total Bilirubin 0.52 mg/dL (0.00-1.30)
[2024-07-03] MEDS: Phenazopyridine 95 MG Tablet 190 MG PO (08:37)
[2024-07-03] MEDS: Morphine 4 MG/ML Syringe IV ×2 (08:37→21:05)
[2024-07-03] MEDS: Morphine 4 MG/ML Syringe IM (08:52)
--- NOTE | 2024-07-03 09:04 | PCM.HP.OB ---
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 Contractions started at about 9 PM slowly and by 3 AM this morning she decided to come to labor and delivery. Her prior 2 deliveries were at 40 to 41 weeks gestation. She did have some Jackson Morse contractions with those pregnancies but indicated that these contractions were much stronger. She denies any recent fevers except for about a week and a half ago and denies any upper back or abdominal pain. She indicates that she does have rather severe low back pain today. She rates some of her contractions as 8 out of 10. Initial lab work shows an elevated white count of approximately 18 and evidence of a severe urinary tract infection. Maternal Data Information Gestational age: 32 weeks gestation by anatomy ultrasound [facility] Medical History Seasonal allergies Home Medications ?Medication ?Instructions ?Recorded ?Last Taken ?Type vit no.95-ferrous 1 tab PO DAILY 07/03/24 07/02/24 History fumarate 28 mg-folic acid 800 mcg tablet () Allergy/AdvReac Type Severity Reaction Status Date / Time No Known Allergies Allergy Verified 07/03/24 03:11 Family History Grandfather Bladder cancer Grandmother Congestive heart failure Surgical History S/P tonsillectomy Social History (Updated 11/11/21 @ 11:04 by Sammi Ford) current occupation: [employer] Smoking Status: Never smoker alcohol intake: current details: occasionally substance use type: does not use caffeine: Yes what type of physical activity do you participate in: walking and weight training frequency: 1-2 times per week seatbelt use: always do you feel safe at home: Yes 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 Date Name GA/Weeks Outcome Route Bth Weight Infant Gen Labor Lgth Anesthesia Del Locatn Provider FOB Unknown Juan Carlos 09/23/20 Elma 41 live - full term 8lbs 13oz Female [facility] NST FHR Rate Baby A NST Reactive:: Yes FHR Category:: Category I ROS Constitutional Constitutional: Reports systems reviewed and no addt'l complaints, except as documented Vital Signs Vital Signs Vital Signs: Afebrile, vital signs stable 07/03/24 03:14 07/03/24 03:14 07/03/24 03:14 Temperature Temperature Source Temporal Pulse Rate 109 H Respiratory Rate 14 Blood Pressure BP Systolic BP Diastolic Pulse Ox 07/03/24 03:14 07/03/24 03:14 07/03/24 03:16 Temperature 97.3 F L Temperature Source Pulse Rate Respiratory Rate Blood Pressure 119/75 BP Systolic 119 BP Diastolic 75 Pulse Ox 96 07/03/24 03:16 07/03/24 05:41 07/03/24 05:41 Temperature Temperature Source Pulse Rate 113 H 106 H Respiratory Rate Blood Pressure 122/76 H BP Systolic 122 BP Diastolic 76 Pulse Ox 07/03/24 05:42 07/03/24 05:42 07/03/24 05:42 Temperature 99.4 F H Temperature Source Temporal Pulse Rate Respiratory Rate 16 Blood Pressure BP Systolic BP Diastolic Pulse Ox 07/03/24 05:57 07/03/24 05:57 07/03/24 05:58 Temperature Temperature Source Pulse Rate 112 H 84 Respiratory Rate Blood Pressure BP Systolic BP Diastolic Pulse Ox 97 07/03/24 05:58 07/03/24 07:27 07/03/24 07:27 Temperature Temperature Source Pulse Rate 97 Respiratory Rate Blood Pressure BP Systolic BP Diastolic Pulse Ox 80 97 07/03/24 08:57 07/03/24 08:57 Temperature 97.9 F Temperature Source Temporal Pulse Rate Respiratory Rate Blood Pressure BP Systolic BP Diastolic Pulse Ox Weight Weight: 226 lb 12.8 oz Body Mass Index (BMI) 38.9 Physical Exam Const alert, oriented x3 and no apparent distress General Appearance: cooperative and comfortable Exam Limitations: no limitations HEENT normocephalic Face and Sinus: normal facial exam Neck full ROM Resp normal respiratory effort and no retractions GI soft to palpation, non-tender and non-distended Back/Spine no CVA tenderness Extremity normal to inspection, no clubbing, cyanosis or edema and no calf tenderness Neuro moves all extremities Psych mental status grossly normal, affect normal, speech normal and activity/motor behavior normal Labs Labs Labs: Blood Type O POSITIVE Antibody Screen NEGATIVE Hct 35.0 % (37-47) L Hgb 11.8 g/dL (12.0-15.0) L Obstetrics Ultrasound Syphilis Total Ab Nonreactive (Nonreactive) Rubella IgG Antibody REAC (Nonreactive) Hep Bs Antigen Nonreactive (Nonreactive) Hepatitis C Antibody Nonreactive (Nonreactive) Chlamydia DNA (ITZEL) Negative (Negative) N.gonorrhoeae DNA (ITZEL) Negative (Negative) HIV 1&2 Antibody Nonreactive (Nonreactive) Glucose 1 Hr 50 gm 145 mg/dL (70-140) H Gest Glucose Tolerance MG/DL Rhogam given: No Assessment & Plan (1) Urinary tract infection during in third trimester, antepartum: (2) uterine contractions in third trimester, antepartum: 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 Balance of labs ordered. No evidence of pyelonephritis. For contractions and discomfort IV fluid boluses given and started Ancef; Procardia as needed for contractions and Pyridium to help with bladder spasms. Morphine IV/IM given for immediate discomfort. Awaiting urine culture. Steroids given. If no response to Ancef may need to consider switching to another antibiotic after 14 to 16 hours; if fevers or epigastric pain occurs may need to consider adding gentamicin. Continuing to monitor baby and contractions closely. Cervix has remained unchanged at 3/70/-2 since admission at 3 AM this morning.
[2024-07-04] VITALS (7 sets, daily range): BP systolic 101–129; BP diastolic 56–70; PULSE 60–106; RESP 15–16; TEMP 36.3–36.6; O2SAT 96–100
[2024-07-04] MEDS: Lactated Ringers 1,000 ML 150 ML IV ×4 (00:30→21:36)
[2024-07-04] MEDS: Morphine 4 MG/ML Syringe IV (02:15)
[2024-07-04] MEDS: Acetaminophen 500 MG Tablet 1000 MG PO ×3 (02:15→21:34)
[2024-07-04] MEDS: Betamethasone/Betamethasone 30 MG/5 ML Vial 12 MG IM (04:56)
[2024-07-04] MEDS: Cefazolin 1 GM/50 ML BAG IV (06:24)
--- NOTE | 2024-07-04 09:31 | PCM.PN.OB ---
Subjective Subjective Patient still complaining of 8 out of 10 contraction pain presently about every 15 minutes. For about 3 to 4 hours yesterday she had no contractions or pain. Patient has now been on IV Ancef for greater than 24 hours. Urine culture still pending. Minimal vaginal discharge still noted with slight amount of blood tinge but urine is clearing per patient. Still occasionally complaining of severe low back pain relieved with IV morphine Objective Data Objective Data Reactive heart tones and baby with good movement. Cervix last evening still unchanged. Vital Signs: Vital Signs Temp Pulse Resp BP Pulse Ox 97.3 F L 89 16 108/60 97 07/04/24 05:01 07/04/24 08:29 07/04/24 05:01 07/04/24 08:29 07/04/24 08:29 Weight: 226 lb 12.8 oz Body Mass Index (BMI) 38.9 Intake & Output: Intake and Output for Last 24 Hours 07/02/24 07/03/24 07/04/24 23:59 23:59 23:59 Intake Total 3150.0 / 3150.0 2087.5 / 2087.5 Balance 3150.0 / 3150.0 2087.5 / 2087.5 Lab / Micro Data 07/03/24 03:40 07/03/24 03:40 Micro: Microbiology 07/03/24 05:50 Urine, Clean Catch Chlamydia/Neisseria (PCR) - Final Physical Exam Narrative Afebrile, vital signs stable. Uterus still nontender but some tenderness over symphysis pubis area. NST FHR Rate Baby A FHR Category:: Category I Assessment & Plan (1) uterine contractions in third trimester, antepartum: PLAN: 32-week intrauterine with severe acute cystitis. No fever but continued pain consistent with intermittent contractions. I feel we need to keep the patient in the hospital because of her early gestation and concern about labor at home. 2 doses of steroids have been given. Will switch antibiotic from Ancef to ceftriaxone. Will schedule Pyridium 3 times daily. Anticipate episodes of contractions will decrease over the next 24 hours and that we we will be able to discharge to home tomorrow on oral antibiotics. (2) Urinary tract infection during in third trimester, antepartum:
[2024-07-04] MEDS: Phenazopyridine 95 MG Tablet 190 MG PO ×3 (09:40→21:34)
[2024-07-04] MEDS: Ceftriaxone 1 GM Vial IM (10:08)
[2024-07-04] MEDS: NIFEdipine 10 MG Capsule PO (19:45)
[2024-07-04] MEDS: oxyCODONE 5 MG Tablet PO ×2 (20:18→23:27)
[2024-07-05] VITALS (13 sets, daily range): BP systolic 101–134; BP diastolic 56–79; PULSE 71–99; RESP 16–18; TEMP 36.1; O2SAT 93–97
[2024-07-05] MEDS: NIFEdipine 10 MG Capsule PO (01:57)
[2024-07-05] MEDS: oxyCODONE 5 MG Tablet PO (05:30)
[2024-07-05] MEDS: Phenazopyridine 95 MG Tablet 190 MG PO (05:50)
[2024-07-05 06:22] LABS: Absolute Lymphocyte Count 1.44 X10^3/uL (0.83-4.51); Basophil# 0.03 X10^3/uL; Basophil% 0.2 % (0-1); Hematocrit 34.7 % (37-47); Hemoglobin 11.7 g/dL (12.0-15.0); Lymphocyte # 1.44 X10^3/ul (0.83-4.51); Lymphocyte % 7.9 % (19-41); Mean Corp Hgb Conc 33.7 g/dL (32-36); Mean Corpuscular Hgb 31.1 pg (27.0-32.0); Mean Corpuscular Volume 92.3 fL (81-99); Mean Platelet Vol. 9.1 fl (6.2-12.0); Monocyte# 0.63 X10^3/uL; Monocyte% 3.5 % (0-10); NRBC Flagged by Analyzer 0 % (0-5); Neutrophil # 16.03 X10^3/uL (2.7-7.7); Neutrophil % 87.9 % (47-70); Platelet Count 270 K/mm3 (150-450); RBC Distribution Width CV 13.7 % (11.6-14.6); RBC Distribution Width SD 46.5 fl (35.1-43.9); Red Blood Count 3.76 M/mm3 (4.2-5.4); White Blood Count 18.2 K/mm3 (4.4-11.0)
--- NOTE | 2024-07-05 09:40 | PCM.PN.OB ---
Subjective Subjective Patient continuing with contractions every 6 to 8 minutes very strong. This after having no contractions for about 8 hours yesterday afternoon. Oxycodone has been used to help with pain. Urine culture back and shows mixed gram-positive organisms. Patient has had 1 dose of ceftriaxone IM and will have a second dose this morning. heart tones remain category 1 except after narcotic pain medication when variability is diminished. [place]hear some pressure last evening and cervix was checked and it remained unchanged at 3/70/-2. Objective Data Objective Data Afebrile, vital signs stable. CBC unchanged with white count still 18. Bedside ultrasound shows an anterior placenta, cephalic presentation, normal amniotic fluid, and femur length consistent with dates. Vital Signs: Vital Signs Temp Pulse Resp BP Pulse Ox 97.8 F 89 15 121/66 H 93 07/04/24 08:30 07/05/24 09:05 07/04/24 08:30 07/05/24 09:05 07/05/24 09:05 Weight: 226 lb 12.8 oz Body Mass Index (BMI) 38.9 Intake & Output: Intake and Output for Last 24 Hours 07/03/24 07/04/24 07/05/24 23:59 23:59 23:59 Intake Total 3150.0 / 3150.0 3977.5 / 3977.5 747.5 / 747.5 Balance 3150.0 / 3150.0 3977.5 / 3977.5 747.5 / 747.5 Lab / Micro Data 07/05/24 03:04 07/03/24 03:40 Labs: Laboratory Results - last 24 hr 07/05/24 03:04: WBC 18.2 H, RBC 3.76 L, Hgb 11.7 L, Hct 34.7 L, MCV 92.3, MCH 31.1, MCHC 33.7, RDW Std Deviation 46.5 H, RDW Coeff of Lawrence 13.7, Plt Count 270, MPV 9.1, Immature Gran % (Auto) 0.500, Neut % (Auto) 87.9 H, Lymph % (Auto) 7.9 L, Mcclain % (Auto) 3.5, Eos % (Auto) 0.0, Baso % (Auto) 0.2, Absolute Neuts (auto) 16.0 H, Absolute Lymphs (auto) 1.44, Nucleated RBC % 0 Micro: Microbiology 07/03/24 05:50 Urine, Clean Catch Urine Culture - Final Mixed Gram Positive Organisms 07/03/24 05:50 Urine, Clean Catch Chlamydia/Neisseria (PCR) - Final Physical Exam Narrative Cervical exam unchanged last evening. Palpation of uterus during severe intermittent abdominal pain confirms this is uterine contractions. NST FHR Rate Baby A FHR Category:: Category I (Decreased variability after narcotic pain medication) Uterine Activity:: Contractions every 6 to 8 minutes noted on monitor. Assessment & Plan (1) uterine contractions in third trimester, antepartum: (2) Urinary tract infection during in third trimester, antepartum: PLAN: Plan Condition unchanged at 32 weeks 6 days gestation. Still very strong contractions about every 8 minutes which patient has to breathe through. I now believe that this is most likely protracted labor rather than severe acute cystitis. I discussed the case along with management with Dr. Paulino at maternal- medicine at [facility]. She agreed with present management but suggested less aggression regarding using narcotics to control pain. She suggested switching to Vistaril and Ambien and possibly even melatonin. She did not feel that amniocentesis was warranted at this time and that this is most likely protracted labor with likely eminent delivery. For this reason we will switch from oxycodone to oral Vistaril, discontinue Pyridium, and saline lock the patient's IV while waiting for active labor to ensue. I discussed this with the patient and her who agree with the plan and all questions were answered.
[2024-07-05] MEDS: 0.9% Saline Lock 10 ML Syringe IV (11:39)
[2024-07-05] MEDS: Penicillin G Pot 5,000,000 UNITS in 0.9% Normal Saline (100mL MB+) 100 ML 150 UNITS IV (11:40)
[2024-07-05] MEDS: Lactated Ringers 1,000 ML 50 ML IV (11:41)
[2024-07-05] MEDS: Oxytocin 10 UNITS/ML Vial IM (14:36)
[2024-07-05] MEDS: Oxytocin 15 Units/NS 250ml 15 UNITS/250 ML IV.SOLN 83 UNITS IV (14:45)
--- NOTE | 2024-07-05 14:45 | EX.PCM.OBVAG ---
Vaginal Delivery Maternal Presentation Maternal Presentation: Active Labor Vaginal Delivery Information Procedure Performed: Spontaneous Vaginal Delivery Surgeon/Practitioner: Akira Dixon Date of Procedure: 07/05/24 Pre-Procedure Diagnosis: Labor at 32+ Weeks Gestation Post-Procedure Diagnosis: Labor at 32+ Weeks Gestation Type of anesthesia: None Estimated Blood Loss: 250 cc Fluids Replaced: Crystalloid Findings Description of procedure: Spontaneous vaginal delivery of a viable female with Apgars of 8/TBD from an occiput anterior presentation with lightly stained meconium fluid and normal three-vessel placenta. No episiotomy or laceration. Pediatrics present for delivery (Dr. Curtis). No complications. Delivery physician: Akira Dixon MD. Presentation: Vertex Amniotic Membrane Rupture Type: Artificial Amniotic Fluid Description: Lightly stained meconium Placental Delivery Description: Spontaneous Placenta Disposition: Sent to Pathology Cord Vessel Description: 3 Vessels Cord Entanglement: None Cord Gases: ABG and VBG Infant A Gender: Female (1 minute): 8 Delayed Cord Clamping: Yes Post Vaginal Deli Medications given after delivery: IM Pitocin Episiotomy Description: None Laceration: None Complication Complications: No
[2024-07-05] MEDS: Acetaminophen 500 MG Tablet PO (15:13)
[2024-07-06 04:15] VITALS: BP 128/81; PULSE 57; RESP 16; TEMP 36.4; O2SAT 97
[2024-07-06] MEDS: Acetaminophen 500 MG Tablet 1000 MG PO (04:19)
--- NOTE | 2024-07-06 07:33 | PCM.PN.OB ---
Subjective Subjective Pt without complaints. Pumping. Minimal vaginal bleeding reported. Objective Data Objective Data Vital Signs: Vital Signs Temp Pulse Resp BP Pulse Ox O2 Del Method 97.6 F L 57 L 16 128/81 H 97 Room Air 07/06/24 04:15 07/06/24 04:15 07/06/24 04:15 07/06/24 04:15 07/06/24 04:15 07/06/24 04:15 Oxygen Delivery Method Room Air Weight: 226 lb 12.8 oz Body Mass Index (BMI) 38.9 Intake & Output: Intake and Output for Last 24 Hours 07/04/24 07/05/24 07/06/24 23:59 23:59 23:59 Intake Total 3977.5 / 3977.5 1495.0 / 1495.0 Output Total 750 / 750 Balance 3977.5 / 3977.5 745.0 / 745.0 Lab / Micro Data 07/05/24 03:04 07/03/24 03:40 Micro: Microbiology 07/03/24 05:50 Urine, Clean Catch Urine Culture - Final Mixed Gram Positive Organisms 07/03/24 05:50 Urine, Clean Catch Chlamydia/Neisseria (PCR) - Final Physical Exam Narrative AF, VSS Assessment & Plan (1) uterine contractions in third trimester, antepartum: (2) Spontaneous vaginal delivery: PLAN: Doing well PPD #1 s/P . Baby in special care nursery. Continuing present care.
[2024-07-06 07:36] VITALS: BP 110/70; PULSE 63; RESP 16; TEMP 35.9; O2SAT 97
--- NOTE | 2024-07-06 09:47 | DS.PCM_ITS ---
Providers Date of Admission: 07/03/24 Primary Care Physician: Valeria Fleming NP-C Reason For Visit: UTI, UTERINE CONTRACTIONS IN THIRD TRIMEST Diagnosis Discharge Diagnosis (1) uterine contractions in third trimester, antepartum: Status: Acute Code(s): O47.03 - False labor before 37 completed weeks of gestation, third trimester (2) Spontaneous vaginal delivery: Status: Acute Code(s): O80 - Encounter for full-term uncomplicated delivery Medications at Discharge Home Medications vit no.95-ferrous fumarate 28 mg-folic acid 800 mcg tablet () 1 tab PO DAILY 07/03/24 Hospital Course Operations None Procedures None Summary of Care Provided Hospital Course: 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 Contractions started at about 9 PM slowly and by 3 AM this morning she decided to come to labor and delivery.infectious vs labor. received IV antibiotics with negative urinary culture. cervical change made and resulted in vaginal delivery. Weight / BMI Weight Weight: 226 lb 12.8 oz Body Mass Index (BMI) 38.9 ABG / Lab / Microbiology Data 07/05/24 03:04 07/03/24 03:40 Microbiology: Microbiology 07/03/24 05:50 Urine, Clean Catch Urine Culture - Final Mixed Gram Positive Organisms 07/03/24 05:50 Urine, Clean Catch Chlamydia/Neisseria (PCR) - Final D/C Instructions Discharge Diet: No restrictions Discharge Activity: May Not Drive and May Shower May resume sexual activity in: 6 weeks Weight Bearing Status: Full weight bearing Call your doctor if your incision/area has: Sudden Increased Bleeding, Increased Pain/ Swelling and Foul Smelling Discharge Call your doctor if you observe: Fever of 101 or Higher, Numbness or Tingling, Change in Color, Inability to urinate, Inability to have a bowel movement, Using more than 1 pad per hour, Shortness of breath, Dizziness, Fainting spells, Chest pain, Calf discomfort and Uncontrolled pain DC O2, CPAP, BIPAP Needs Home O2 Discharge instructions: No Please Follow Up With: Joya Singh CNM When: 6 weeks , please call office to make an appointment. Congratulations on the of your baby! Meaningful Use Info Meaningful Use Meaningful Use Diagnoses (Choose all that apply): None applicable Ischemic Stroke Statin Dosing Therapy Reference: STATIN DOSE THERAPY REFERENCE: * Patients > 75 years receive moderate or high dose statin therapy. * Patients 75 years or YOUNGER should receive HIGH intensity statin dose unless contraindicated. You will be required to document reason for non-treatment if statin daily dose does not meet guidelines. HIGH DOSE STATIN THERAPY DAILY Atorvastatin > than or = to 40 mg Rosuvastatin > than or = to 20 mg Amlodipine + Atorvastatin > than or = to 2.5/40 mg Ezetimibe + Simvastatin 10/80 mg Simvastatin 80mg Discharge Plan Admission Admit Date/Time: 07/03/24 09:18 Attending Provider: Akira Dixon Primary Care Provider: Valeria Fleming NP Discharge Orders/Prescriptions Prescriptions: No Action PNV cmb#95-ferrous fumarate-FA [] 28 mg iron- 800 mcg tablet 1 tab PO DAILY Referrals / Follow Up: Valeria Fleming NP, CARE MANAGEMENT ASSOCIATE-C [Primary Care Provider] - Disposition Disposition (needs filled in before D/C Order can be placed): Home, Self Care
--- NOTE | 2024-07-11 09:38 | NURSING ---
Follow up phone call: Patient is doing well, is in SCN. Bleeding is decreasing, no s +s of pp complications but is aware of how to contact her provider. Patient was satisfied with her care.
--- NOTE | 2024-07-22 13:33 | CASEMGMT ---
Social Work Assessment Labor and Delivery Unit Patient Address: [address] [place] [address], [place] [address] Phone number: [phone] Date of Referral: 07/05/24 Time of Referral:? 1537 Referred By: Dr. Curtis Date of Intervention: ??07/22/24 Time of Intervention:? 944 Reason for Referral:? SCN admission Sw completed chart review and acknowledges social work consult due to being admitted to [facility]. Sw presented to bedside and introduced self to mother of baby (KATHY Aguillon). Sw explained reason for sw involvement and completed psychosocial assessment. History obtained from: medical records, MOB Household composition: Currently residing in the family home is MOB, father of baby (RAZIA Ulrich) and their two older children: Elma (3) and Galina (2). baby to be included in residence when ready for discharge. ZAIDA denies any problems or concerns with housing, reporting it to be safe and secure. Patient's parent/guardian status:? ZAIDA reports that she and JOSE met at [employer] and have been together for 8 years. baby is third baby for parents together. NO concerns regarding domestic violence or intimate partner violence. ? Medical History: ?ZAIDA is 29 year old female who is 3, para 2- now 3 following labor and delivery of . 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 ZAIAD presented to hospital and delivered baby on 07/05/24 at 32 weeks gestation via vaginal delivery. Baby girl, named Martha, was born weighing 5lb 4oz with apgars of 8 and 9 at one and five minutes of life, respectfully. On 07/06/24 baby was transferred to [facility] NICU where she was treated for prematurity and assistance with feeds. Baby was then able to do a reverse transfer back to [facility] on 07/08/24. Baby has now met identified treatment goals and is medically ready for discharge. Educational Status:? Both parents graduated high school and attended college. No problems with reading, learning or comprehension. Financial Status: JOSE is gainfully employed outside of the home working as an [employer] tech. ZAIDA is unemployed and stays home to care for her kids. Infant Supplies: All necessary baby supplies obtained, including: car seat, safe sleep space, clothes, diapers and wipes. Childcare/Caregiver(s):? ZAIDA reports that she will be the primary caregiver to baby along with FOB when he is not working. Transportation:?? Both parents have their drivers license and reliable means of transportation, no barriers. Programs/Agencies Involved: ?[place] are not connected to any community resources that assist them financially as they are over income. ?? Children Services/Legal Issues:??No former involvement with Children Services, no issues or concerns warranting referral to be made at this time. ? Behavioral Health Issues: ??Mental Health History: ZAIDA denies that she or JOSE have any mental health diagnoses. ??? Substance Use History:?MOB denies substance use prior to and during . ? Family History: MOB denies family history of substance use or significant mental health diagnoses. ?Drug Screens: No drug screens observed while completing chart review. Family/Social Stressors:? MOB states that although [facility] it has not been troublesome for their family. ZAIDA reports to having a lot of natural supports in place and is appreciative of ability to return to [facility] to finish out Martha's need for NICU admission. Support Systems:MOB states that both sets of grandparents and immediate family member's are their biggest supports. Depression/Shaken Baby/Safe Sleeping: Sw educated MOB on signs and symptoms of baby blues and depression and anxiety. MOB states that she is familiar with symptoms and signs to be on the lookout for. MOB states that so far after delivery she has felt really good. Sw educated MOB on shaken baby prevention and ABCs of safe sleep. MOB expressed understanding. ASSESSMENT:? [facility] due to prematurity, at 32 weeks gestation and is medically ready for discharge today. MOB was at bedside and was welcoming to sw. MOB answered questions and engaged in completion of assessment. While MOB was sitting in chair at bedside baby lay comfortably in bassinet. ZAIDA appeared eager to be able to go home today so that all her children can be home together. MOB states that her 2 year old has not yet met baby because she has a little cold. MOB states that JOSE is one of her biggest support people and has been extremely supportive during this NICU journey. PLAN:?? No other services requested or indicated. MOB and baby to be discharged when medically ready. Parents were provided literature regarding: signs and symptoms of baby blues and mood and anxiety disorders, Help Me Grow, shaken baby prevention, ABCs of safe sleep and a list of [facility] resources that are available for them should any needs present themselves. Valarie Jurado, RESEARCH AGRICULTURAL ENGINEER, COMMERCIAL TITLE EXAMINER
== END 2024-07-06 11:30 | disposition home or self-care (01) | DRG 806 ==
LOC: WPOUT 07-05 17:44 → WP 07-05 17:44
PROVIDERS: Admitting Provider Obstetrics & Gynecology; PCP Nurse Practitioner Family; Referring Provider Obstetrics & Gynecology; Visit Provider Obstetrics & Gynecology
DX: O47.03 False labor before 37 completed weeks of gestation, third trimester (principal); Z37.0 Single live birth; O23.43 Unspecified infection of urinary tract in pregnancy, third trimester; Z3A.32 32 weeks gestation of pregnancy; O77.0 Labor and delivery complicated by meconium in amniotic fluid
CPT/HCPCS: 36415; 59025; 59050; 80053; 81001; 85025; 86703; 86762; 86780; 86803; 86850; 86900; 86901; 87086; 87088; 87340; 87491; 87591; 96372; 99221; A4216; G0378; J0702